=== PATIENT | female | born 2000 | race Caucasian/White ===

== ENCOUNTER 2021-07-23 21:02 | Emergency (ER) | payer OTHER ==
[~2021-07-23] VITALS: Ht 167.6 cm; Wt 79.8 kg
[2021-07-23 22:44] VITALS: BP 113/64
== END 2021-07-23 23:15 | disposition home or self-care (01) ==
LOC: ER 21:07
DX: S71.111A Laceration without foreign body, right thigh, initial encounter (principal); X78.9XXA Intentional self-harm by unspecified sharp object, initial encounter; Y93.89 Activity, other specified; Y92.89 Other specified places as the place of occurrence of the external cause; Y99.8 Other external cause status
CPT/HCPCS: 99282; A6253

== ENCOUNTER 2021-12-27 02:00 | Emergency (ER) | payer OTHER ==
[~2021-12-27] VITALS: Ht 167.6 cm; Wt 81.6 kg
--- NOTE | 2021-12-27 02:14 | NUR ---
RUTHIE FROM [facility] C/O OVERDOSING GIVEN 2 SPRAYS OF NARCAN. TOLERATING R/A WELL WITH NO SOB. SAFETY MEASURES IN PLACE.
--- NOTE | 2021-12-27 02:43 | NUR ---
TOM URBAN (FRIEND EMERGENCY CONTACT)
--- NOTE | 2021-12-27 05:57 | NUR ---
PT SLEEPING IN BED. RESP EVEN AND NON LABORED. VSS.
[2021-12-27] MEDS ORDERED: ACETAMINOPHEN 325 MG TABLET ONE (06:39)
[2021-12-27] MEDS ORDERED: ONDANSETRON 4 MG TAB.RAPDIS ONE (06:50)
[2021-12-27] MEDS ORDERED: ONDANSETRON HCL/PF 4 MG/2 ML VIAL ONE (06:51)
[2021-12-27] MEDS ORDERED: ACETAMINOPHEN 325 MG TABLET PO ONE (07:00)
[2021-12-27] MEDS ORDERED: ONDANSETRON 4 MG TAB.RAPDIS SL ONE (07:00)
--- NOTE | 2021-12-27 07:16 | NUR ---
Patient discharged to home in stable condition. Written and verbal after care instructions given. Patient verbalizes understanding of instruction.IV removed. Catheter intact and site benign. Pressure and 4x4 applied to site. No bleeding noted.
[2021-12-27 07:17] VITALS: BP 116/63
== END 2021-12-27 07:17 | disposition home or self-care (01) ==
LOC: ER 02:04
DX: T40.601A Poisoning by unspecified narcotics, accidental (unintentional), initial encounter (principal); Y92.89 Other specified places as the place of occurrence of the external cause
CPT/HCPCS: 99283; J2405; Q0162